=== PATIENT | male | born 1935 | race Caucasian/White ===

== ENCOUNTER → 2019-06-16 16:11 | Outpatient (BNVA) | payer OTHER, MEDICARE, SELFPAY | PROVIDERS: PCP Emergency Medicine; Visit Provider Family Medicine | DX: E11.9 Type 2 diabetes mellitus without complications (principal); I10 Essential (primary) hypertension; J44.9 Chronic obstructive pulmonary disease, unspecified; N40.0 Benign prostatic hyperplasia without lower urinary tract symptoms | CPT/HCPCS: 80053; 80061; 83036; 85025 ==

== ENCOUNTER 2020-08-14 03:15 | Emergency (ER) | payer MEDICARE, OTHER, SELFPAY ==
[2020-08-14 03:20] VITALS: BP 104/71; PULSE 80; RESP 21; TEMP 31.1; BMI 17.6
[2020-08-14 03:29] VITALS: BP 104/71; RESP 24
[2020-08-14 03:32] VITALS: BP 103/71; PULSE 60; RESP 28; TEMP 29.8; O2SAT 90
--- NOTE | 2020-08-14 03:32 | XRR_ITS ---
PROCEDURE INFORMATION: Exam: XR Chest Exam date and time: 08/14/2020 5:32 AM Age: 85 years old Clinical indication: Device placement; Ett placement (vent status); Additional info: Altered mental status, PT intubated TECHNIQUE: Imaging protocol: XR of the chest Views: 1 view. COMPARISON: No relevant prior studies available. FINDINGS: Tubes, catheters and devices: Endotracheal tube, tip 3.7 cm above yaw. Nasogastric tube, tip below diaphragm and off image. Lungs: Coarse interstitial opacities in the perihilar regions and lung bases bilaterally. This may represent any combination of chronic scarring, pulmonary edema, and atypical/viral pneumonia. Pleural spaces: No visible pneumothorax or pleural effusion. Heart/Mediastinum: Unremarkable. No cardiomegaly. Bones/joints: No emergent findings identified. XR/XR chest 1V portable [id number] IMPRESSION: 1. Endotracheal tube, tip 3.7 cm above yaw. 2. Coarse interstitial opacities in the perihilar regions and lung bases bilaterally. This may represent any combination of chronic scarring, pulmonary edema, and atypical/viral pneumonia.
--- NOTE | 2020-08-14 03:32 | ECG_ITS ---
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 Measurements Intervals [place] Rate: 61 P: 57 MS: 145 QRS: 31 QRSD: 133 T: 9 QT: 456 QTc: 462 Interpretive Statements SINUS RHYTHM WITH OCCASIONAL SUPRAVENTRICULAR PREMATURE COMPLEXES INDETERMINATE AXIS RIGHT BUNDLE BRANCH BLOCK [120+ ms QRS DURATION, UPRIGHT V1, 40+ ms S IN I/aVL/V4/V5/V6] No previous ECG available for comparison Baseline artifact, need to repeat the study Electronically Signed On 08-14-2020 22:39:54 CDT by Stephanie Worley M.D. [email or web address] health [email or web address].[email or web address]/store/OM/[id number]
--- NOTE | 2020-08-14 03:44 | CTR_ITS ---
PROCEDURE INFORMATION: Exam: CT Head Without Contrast Exam date and time: 08/14/2020 3:46 AM Age: 85 years old Clinical indication: Altered mental status/memory loss; Additional info: AMS TECHNIQUE: Imaging protocol: Computed tomography of the head without contrast. Radiation optimization: All CT scans at this facility use at least one of these dose optimization techniques: automated exposure control; mA and/or kV adjustment per patient size (includes targeted exams where dose is matched to clinical indication); or iterative reconstruction. COMPARISON: No relevant prior studies available. RADIATION DOSE METRICS: Total DLP (mGy-cm): 879.33 FINDINGS: An acute on chronic right subdural hematoma is present along the right hemisphere, the posterior falx and the tent with maximum thickness of 1.56 cm along the tentorium. A chronic subdural is also suspected on the left side. Few small intraparenchymal hyperdense areas are present in the left hemisphere suggesting tiny intraparenchymal hemorrhages. CT/CT head wo con* [id number] IMPRESSION: An acute on chronic right subdural hematoma is present. 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 Tiny intraparenchymal hemorrhages are seen in the left hemisphere. Radiation Dose CTDIVOL = (mGy): DLP = 879.33 (mGy-cm)
[2020-08-14 03:48] LABS: Glucose Point of Care 72 mg/dL (70-110)
[2020-08-14 04:29] VITALS: BP 96/72; PULSE 60; TEMP 29.7
[2020-08-14 04:39] LABS: ABG PCO2 38.8 mmHg (35-45); ABG PH Result 7.43 (7.35-7.45); Arterial Blood Gas Hematocrit 43.4 % (42-52); Base Excess ABG 1.1 mmol/L (-2.0-2.0); Blood Gas Allen Test Pos; Blood Gas Sample Site Radial, right; Blood Gas Sample Type Arterial; HCO3 ABG 25.5 mmol/L (22-26); PO2 ABG 58.3 mmHg (80.0-100.0)
[2020-08-14 04:41] LABS: Basophils % 0.3 %; Eosinophils % 0.1 %; Hematocrit 44.8 % (42.0-52.0); Hemoglobin 14.4 g/dL (11.7-16.6); Lymphocytes # 1.1 10^3/uL (0.8-4.8); Lymphocytes % 10.3 %; Mean Corpuscular HGB Conc 32.1 g/dL (30.0-36.0); Mean Corpuscular Hemoglobin 29.2 pg (28.0-34.0); Mean Corpuscular Volume 90.9 fL (80-94); Mean Platelet Volume 10.9 fL (7.4-10.4); Monocytes # 0.1 10^3/uL (0.2-0.9); Monocytes % 1.1 %; Neutrophils % 87.7 %; Nucleated Red Blood Cells % 0 %; Platelet Count 297 10^3/cmm (130-400); Red Blood Count 4.93 10^6/uL (4.1-5.3); Red Cell Distribution Width 14.3 % (12.1-15.1); White Blood Count 10.3 10^3/uL (4.0-10.0)
[2020-08-14] MEDS: midazolam 1 mg/mL INJ 2 mL 2 MG IVP (04:48)
[2020-08-14 04:50] LABS: Partial Thromboplastin Time 45.6 SECONDS (23.9-36.7)
[2020-08-14] MEDS: succinylcholine 20 mg/mL SDV 10mL 100 MG IVP (04:51)
[2020-08-14 04:55] LABS: Troponin(5th) Baseline 54 ng/L (0-15)
[2020-08-14 05:00] VITALS: RESP 14
[2020-08-14 05:02] LABS: Procalcitonin 1.18 ng/mL (0-0.5)
[2020-08-14] MEDS: vecuronium 10 mg SDV 8 MG IVP (05:07)
[2020-08-14] MEDS: propofol 1,000 MG/100 ML INJ 1.4 MG IV (05:10)
[2020-08-14 05:13] LABS: Alanine Aminotransferase 22 U/L (0-41); Albumin Level 3.8 g/dL (3.5-5.2); Alkaline Phosphatase 174 IU/L (40-130); Aspartate Amino Transferase 26 U/L (0-40); Blood Urea Nitrogen 54 mg/dL (8-23); Calcium 9.7 mg/dL (8.5-10.5); Carbon Dioxide 18 mmol/L (22-29); Chloride 101 mmol/L (98-107); Glucose 77 mg/dL (65-115); Osmolality Calculated 306 mOsm/kg (285-295); Sodium 141 mmol/L (136-145); Total Bilirubin 0.5 mg/dL (0.15-1.2); Total Protein 6.8 g/dL (6.6-8.7)
[2020-08-14 05:23] LABS: Anion Gap 25.5 (5-19); Potassium 3.5 mmol/L (3.5-5.1)
--- NOTE | 2020-08-14 05:34 | ECG_ITS ---
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 Measurements Intervals [place] Rate: 74 P: 82 [place]: 143 QRS: 71 QRSD: 115 T: 52 QT: 585 QTc: 651 Interpretive Statements SINUS RHYTHM WITH FREQUENT SUPRAVENTRICULAR PREMATURE COMPLEXES INCOMPLETE RIGHT BUNDLE BRANCH BLOCK [90+ ms QRS DURATION, TERMINAL R IN V1/V2, 40+ ms S IN I/aVL/V4/V5/V6] NONSPECIFIC ST & T-WAVE ABNORMALITY PROLONGED QT INTERVAL CRITICAL TEST RESULT Compared to ECG 08/14/2020 03:50:09 Incomplete right bundle-branch block now present T-wave abnormality now present Prolonged QT interval now present Indeterminate axis no longer present Right bundle-branch block no longer present Electronically Signed On 08-14-2020 22:47:01 CDT by Stephanie Worley M.D. [email or web address] Partnerssharkey issaquena community hospitalp3dsystemsour lady of [facility].[employer]/store/OM/[id number]
[2020-08-14 05:35] LABS: Add Urine Microscopic? YES; Bilirubin Urine Neg (Negative); Blood Urine 3+ (Negative); Glucose Urine UA 1+ (Normal); Ketones Urine Negative (Negative); Leukocyte Esterase Urine 2+ (Negative); Nitrate Urine Positive (Negative); Protein Urine 1+ (Negative); Urine Color Yellow (Yellow); Urobilinogen Urine Norm (Negative); pH Urine 5 (5-7)
[2020-08-14 05:37] LABS: Add Urine Culture? Yes; Bacteria Urine 4+ /hpf; RBC Urine TOO NUMEROUS TO CNT /hpf (0-2); Squamous Epithelial Cell Urine 0-4 /hpf (0-5); WBC Urine TOO NUMEROUS TO CNT /hpf (0-5)
--- NOTE | 2020-08-14 05:42 | W.ED.AMS ---
HPI - Altered Mental Status General: Chief Complaint: Altered Mental Status Stated Complaint: AMS Time Seen by Provider: 08/14/20 03:23 History of Present Illness: HPI narrative: 85-year-old male presents obtunded. Is unable to give history. History is taken from his , who states that he fell last Saturday, biting his face and was seen at an outside facility. Evidently his CT was negative there. He fell 2 days ago as well striking his head again. His mental status has become increasingly worse since the first fall, but much worse since the second. Again, he is unable to give a clear history. He is nonverbal and obtunded at this point. He had to be removed from the car, and placed on a stretcher. His temperature was 88 ?F rectal on arrival. MD complaint: altered mental status and decreased responsiveness Onset (ago): day(s) Timing confirmed by: spouse Severity: severe Consistency of symptoms: Getting Worse Context: trauma Associated symptoms: Reports other Review of Systems General: Reports: ROS unobtainable due to medical condition PFS ED PFSH: Medical History (Updated 08/14/20 @ 05:52 by Delfino Prince DO) BPH (benign prostatic hyperplasia) Insomnia Type 2 diabetes mellitus without complications Surgical History (Updated 06/16/19 @ 15:43 by Allyssa Alvarenga MD) S/P inguinal hernia repair S/P routine circumcision Family History Father Stroke Mother Heart disease Social History Smoking and tobacco status: never smoked Alcohol intake: current Alcohol intake frequency: 0-2 Drinks per Day Desire information about alcohol rehabilitation?: No Household members: spouse Housing: House Marital status: Highest education level completed: Professional Degree (, , DANA, DVM, DDS, DPM, etc) Current occupational status: employed Current gender identity: Male Physical Exam Const: ORIENTATION/CONSCIOUSNESS: Yes patient obtunded Eye: CONJUNCTIVA: Yes conjunctival abnormal (Subconjunctival hemorrhage bilaterally) Chest: COMMONS NORMALS: normal inspection of the chest Resp: COMMON NORMALS: normal respiratory effort Cardio: COMMON NORMALS: regular rate and regular rhythm RATE: regular rate RHYTHM: regular rhythm GI: COMMON NORMALS: Soft to palpation PALPATION: Yes Soft to palpation Neuro: RAFAEL COMA SCALE: document GCS findings Rafael coma scale eye opening: None [place] coma scale verbal response: Sounds [place] coma scale motor response: Abnormal flexion Rafael coma scale total score: 6 SENSORIUM/ORIENTATION: Yes obtunded Skin: NARRATIVE SKIN EXAM: Aging ecchymosis, diffuse to the head. Urinary Catheter Management^: Cardoza: Cath Placed During This Visit: yes Urinary Catheter Date of Insertion: 08/14/20 Urinary Catheter Time of Insertion: 03:50 Procedures Intubation Time out performed: No sedative: Etomidate Mg Given: 20 paralytic: Succinylcholine Mg Given: 100 Laryngoscope: Chasity ET Tube Size: 8 ET Tube Uncuffed: No Tube Secured Depth (cm): 24 Tube Secured Location: lips Tube Placement Confirmation: visualized tube passing through cords, equal breath sounds bilaterally and confirmation by capnometry Patient Tolerated Procedure: well and no complications Course Consultations: Consultation #1: Ivis, neurosurgery [facility] Vital Signs: Vital signs: Vital Signs Temperature 85.5 F L 08/14/20 04:29 Pulse Rate 60 08/14/20 04:29 Respiratory Rate 28 H 08/14/20 03:32 Blood Pressure 96/72 08/14/20 04:29 Pulse Oximetry 90 08/14/20 03:32 MDM - Altered Mental Status MDM Narrative: Medical decision making narrative: 85-year-old male presents status post head injury. CT shows acute on chronic subdural hematomas bilaterally without midline shift. He has been mildly hypotensive. Current pressure is 90/50. Heart rates been in the 60s and 70s. He was intubated due to low GCS, and just prior to intubation, he became significantly bradycardic. With this came hypotension that was transient. He was not bradycardic post intubation. His lactic acid is 6. His creatinine is 1.8. His white blood cell count is 10. No complications with intubation. No neurosurgery available here. I spoke to neurosurgery at [facility] in [place], and they are willing to take to the neuro ICU in transfer. I spoke to the patient's who agrees to this. Lab Data: Labs: Lab Results 08/14/20 08/14/20 08/14/20 Range/Units 03:02 03:28 03:43 WBC (4.0-10.0) 10^3/ uL RBC (4.1-5.3) 10^6/u L Hgb (11.7-16.6) g/dL Hct (42.0-52.0) % MCV (80-94) fL MCH (28.0-34.0) pg MCHC (30.0-36.0) g/dL RDW (12.1-15.1) % Plt Count (130-400) 10^3/c mm MPV (7.4-10.4) fL Neut % (Auto) % Lymph % (Auto) % [place] % (Auto) % Eos % (Auto) % Baso % (Auto) % Neut # (Auto) (1.8-7.7) 10^3/u L Lymph # (Auto) (0.8-4.8) 10^3/u L [place] # (Auto) (0.2-0.9) 10^3/u L Eos # (Auto) (0.0-0.8) 10^3/u L Baso # (Auto) (0.0-0.1) 10^3/u L Nucleated RBC % (a uto) % Nucleated RBCs # /100WBC PT 15.60 H (12.1-14.9) SECO NDS INR 1.20 (0.8-1.2) APTT 45.6 H (23.9-36.7) SECO NDS Specimen Type Sample Site ABG pH (7.35-7.45) ABG pCO2 (35-45) mmHg ABG pO2 (80.0-100.0) mmH g ABG HCO3 (22-26) mmol/L ABG Base Excess (-2.0-2.0) mmol/ L Miguel Test Hematocrit (42-52) % O2 Delivery Device FiO2 % Materials Assistant ID Sodium (136-145) mmol/L Potassium (3.5-5.1) mmol/L Chloride (98-107) mmol/L Carbon Dioxide (22-29) mmol/L Anion Gap (5-19) BUN (8-23) mg/dL Creatinine (0.7-1.2) mg/dL GFR Calculation Glucose (65-115) mg/dL POC Glucose 72 (70-110) mg/dL Calculated Osmolal ity (285-295) mOsm/k g Lactic Acid (0.5-2.2) mmol/L Calcium (8.5-10.5) mg/dL Total Bilirubin (0.15-1.2) mg/dL AST (0-40) U/L ALT (0-41) U/L Alkaline Phosphata se (40-130) IU/L Troponin T Baselin e (0-15) ng/L Total Protein (6.6-8.7) g/dL Albumin (3.5-5.2) g/dL Globulin (1.3-4.6) g/dL Procalcitonin (0-0.5) ng/mL Urine Color Yellow (Yellow) Urine Appearance Sl cloudy A (CLEAR) Urine pH 5 (5-7) Ur Specific Gravit y 1.020 (1.005-1.030) Urine Protein 1+ H (Negative) Urine Glucose (UA) 1+ (Normal) Urine Ketones Negative (Negative) Urine Blood 3+ H (Negative) Urine Nitrate Positive H (Negative) Urine Bilirubin Neg (Negative) Urine Urobilinogen Norm (Negative) mg/dL Ur Leukocyte Adore ase 2+ H (Negative) Urine RBC Too numerous to c nt H (0-2) /hpf Urine WBC Too numerous to c nt H (0-5) /hpf Ur Squamous Epith Cells 0-4 H (0-5) /hpf Amorphous Sediment Not Reportable Urine Bacteria 4+ H (NONE) /hpf 08/14/20 08/14/20 08/14/20 Range/Units 03:43 03:43 03:43 WBC 10.3 H (4.0-10.0) 10^3/ uL RBC 4.93 (4.1-5.3) 10^6/u L Hgb 14.4 (11.7-16.6) g/dL Hct 44.8 (42.0-52.0) % MCV 90.9 (80-94) fL MCH 29.2 (28.0-34.0) pg MCHC 32.1 (30.0-36.0) g/dL RDW 14.3 (12.1-15.1) % Plt Count 297 (130-400) 10^3/c mm MPV 10.9 H (7.4-10.4) fL Neut % (Auto) 87.7 % Lymph % (Auto) 10.3 % [place] % (Auto) 1.1 % Eos % (Auto) 0.1 % Baso % (Auto) 0.3 % Neut # (Auto) 9.00 H (1.8-7.7) 10^3/u L Lymph # (Auto) 1.1 (0.8-4.8) 10^3/u L [place] # (Auto) 0.1 L (0.2-0.9) 10^3/u L Eos # (Auto) 0.0 (0.0-0.8) 10^3/u L Baso # (Auto) 0.0 (0.0-0.1) 10^3/u L Nucleated RBC % (a uto) 0 % Nucleated RBCs # 0.0 /100WBC PT (12.1-14.9) SECO NDS INR (0.8-1.2) APTT (23.9-36.7) SECO NDS Specimen Type Sample Site ABG pH (7.35-7.45) ABG pCO2 (35-45) mmHg ABG pO2 (80.0-100.0) mmH g ABG HCO3 (22-26) mmol/L ABG Base Excess (-2.0-2.0) mmol/ L Miguel Test Hematocrit (42-52) % O2 Delivery Device FiO2 % Materials Assistant ID Sodium 141 (136-145) mmol/L Potassium 3.5 (3.5-5.1) mmol/L Chloride 101 (98-107) mmol/L Carbon Dioxide 18 L (22-29) mmol/L Anion Gap 25.5 H (5-19) BUN 54 H (8-23) mg/dL Creatinine 1.8 H (0.7-1.2) mg/dL GFR Calculation Not Reportable Glucose 77 (65-115) mg/dL POC Glucose (70-110) mg/dL Calculated Osmolal ity 306 H (285-295) mOsm/k g Lactic Acid 6.0 H* (0.5-2.2) mmol/L Calcium 9.7 (8.5-10.5) mg/dL Total Bilirubin 0.5 (0.15-1.2) mg/dL AST 26 (0-40) U/L ALT 22 (0-41) U/L Alkaline Phosphata se 174 H (40-130) IU/L Troponin T Baselin e (0-15) ng/L Total Protein 6.8 (6.6-8.7) g/dL Albumin 3.8 (3.5-5.2) g/dL Globulin 3.0 (1.3-4.6) g/dL Procalcitonin 1.18 H (0-0.5) ng/mL Urine Color (Yellow) Urine Appearance (CLEAR) Urine pH (5-7) Ur Specific Gravit y (1.005-1.030) Urine Protein (Negative) Urine Glucose (UA) (Normal) Urine Ketones (Negative) Urine Blood (Negative) Urine Nitrate (Negative) Urine Bilirubin (Negative) Urine Urobilinogen (Negative) mg/dL Ur Leukocyte Adore ase (Negative) Urine RBC (0-2) /hpf Urine WBC (0-5) /hpf Ur Squamous Epith Cells (0-5) /hpf Amorphous Sediment Urine Bacteria (NONE) /hpf 08/14/20 08/14/20 Range/Units 03:43 04:30 WBC (4.0-10.0) 10^3/ uL RBC (4.1-5.3) 10^6/u L Hgb (11.7-16.6) g/dL Hct (42.0-52.0) % MCV (80-94) fL MCH (28.0-34.0) pg MCHC (30.0-36.0) g/dL RDW (12.1-15.1) % Plt Count (130-400) 10^3/c mm MPV (7.4-10.4) fL Neut % (Auto) % Lymph % (Auto) % [place] % (Auto) % Eos % (Auto) % Baso % (Auto) % Neut # (Auto) (1.8-7.7) 10^3/u L Lymph # (Auto) (0.8-4.8) 10^3/u L [place] # (Auto) (0.2-0.9) 10^3/u L Eos # (Auto) (0.0-0.8) 10^3/u L Baso # (Auto) (0.0-0.1) 10^3/u L Nucleated RBC % (a uto) % Nucleated RBCs # /100WBC PT (12.1-14.9) SECO NDS INR (0.8-1.2) APTT (23.9-36.7) SECO NDS Specimen Type Arterial Sample Site Radial, right ABG pH 7.43 (7.35-7.45) ABG pCO2 38.8 (35-45) mmHg ABG pO2 58.3 L (80.0-100.0) mmH g ABG HCO3 25.5 (22-26) mmol/L ABG Base Excess 1.1 (-2.0-2.0) mmol/ L Miguel Test Pos Hematocrit 43.4 (42-52) % O2 Delivery Device None FiO2 21.0 % Materials Assistant ID [email or web address] Sodium (136-145) mmol/L Potassium (3.5-5.1) mmol/L Chloride (98-107) mmol/L Carbon Dioxide (22-29) mmol/L Anion Gap (5-19) BUN (8-23) mg/dL Creatinine (0.7-1.2) mg/dL GFR Calculation Glucose (65-115) mg/dL POC Glucose (70-110) mg/dL Calculated Osmolal ity (285-295) mOsm/k g Lactic Acid (0.5-2.2) mmol/L Calcium (8.5-10.5) mg/dL Total Bilirubin (0.15-1.2) mg/dL AST (0-40) U/L ALT (0-41) U/L Alkaline Phosphata se (40-130) IU/L Troponin T Baselin e 54 H (0-15) ng/L Total Protein (6.6-8.7) g/dL Albumin (3.5-5.2) g/dL Globulin (1.3-4.6) g/dL Procalcitonin (0-0.5) ng/mL Urine Color (Yellow) Urine Appearance (CLEAR) Urine pH (5-7) Ur Specific Gravit y (1.005-1.030) Urine Protein (Negative) Urine Glucose (UA) (Normal) Urine Ketones (Negative) Urine Blood (Negative) Urine Nitrate (Negative) Urine Bilirubin (Negative) Urine Urobilinogen (Negative) mg/dL Ur Leukocyte Adore ase (Negative) Urine RBC (0-2) /hpf Urine WBC (0-5) /hpf Ur Squamous Epith Cells (0-5) /hpf Amorphous Sediment Urine Bacteria (NONE) /hpf Critical Care Time Critical Care Time: Critical Care Time: Yes Total Critical Care Time: 40 Attestation: This case had a high probability of a clinically significant, sudden, or life threatening deterioration of this patient's condition which required my full and direct attention, intervention and personal management. Discharge Plan Discharge Patient Disposition: Xfer Short-Term Hosp Clinical Impression: Acute subdural hematoma Condition: Critical Referrals: Dave Serrano PA [Primary Care Provider] - Coding Level of Care Code ED Extension Worker for Chg Fwd Exam Detailed
[2020-08-14 06:09] LABS: Reflex Lactate Order REFLEX LACTIC ORDERD
[2020-08-14] MEDS: sodium chloride 0.9% 1,000 ML 999 ML IV ×2 (06:12→07:28)
[2020-08-14] MEDS: DOPamine drip 400 MG/250 ML PREMIX IV (06:20)
[2020-08-14 07:28] VITALS: BP 111/59; PULSE 89; RESP 14; O2SAT 99
--- NOTE | 2020-08-14 07:32 | PC.NURSE ---
Received report , assumed care. Hali COREY has called Full report to [facility] in [place]. No changes noted Dopamine at 10 mcg/kg/min and Propofol at 2.5 mcg/kg/min. BP 114/58, 76 ,14 and 98% on vent
== END 2020-08-14 07:58 | disposition short-term general hospital (02) ==
PROVIDERS: Nurse Practitioner Family; Emergency Provider Emergency Medicine; PCP Emergency Medicine
DX: S06.5X9A Traumatic subdural hemorrhage with loss of consciousness of unspecified duration, initial encounter (principal); W19.XXXA Unspecified fall, initial encounter; E11.9 Type 2 diabetes mellitus without complications
CPT/HCPCS: 31500; 36416; 36600; 51702; 70450; 71045; 80053; 81001; 82803; 82962; 83605; 84145; 84484; 85025; 85610; 85730; 87040; 87077; 87086; 87186; 93005; 94002; 99291; J0330; J1265; J2250; J2704; J3490; J7030